=== PATIENT | female | born 2000 ===

== ENCOUNTER 2018-05-02 00:09 | Emergency (ER) | payer SELFPAY ==
[2018-05-02 00:10] VITALS: BMI 17.7
[2018-05-02 01:14] VITALS: RESP 18; O2SAT 100
[2018-05-02 02:02] LABS: PH,URINE 8.5 (4.7-8.0); URINE BILIRUBIN NEGATIVE (NEGATIVE); URINE BLOOD NEGATIVE (NEGATIVE); URINE GLUCOSE (UA) NEGATIVE (NEGATIVE); URINE LEUKOCYTE ESTERASE NEGATIVE Leu/uL (NEGATIVE); URINE PROTEIN 30 mg/dL (<30 mg/dL)
[2018-05-02 02:03] LABS: URINE APPEARANCE SL CLOUDY (CLEAR); URINE COLOR YELLOW (YELLOW)
--- NOTE | 2018-05-02 02:15 | ED PDOC ---
Arrival/HPI - General Historian: Patient - History of Present Illness Narrative History of Present Illness (Text): 05/02/18 02:13 17-year-old female presents today with depression. She denies suicidal or homicidal ideation. Patient states she was speaking to her friend and then t urned her phone off and her friend called the ambulance concerned about her. Patient denies headaches dizziness or weakness. She states she is frustrated with her mother and states that she can't do anything right to make her mother happy. <Angelica Stewart - Last Filed: 05/02/18 02:13> <Vahid Jeff - Last Filed: 05/02/18 05:03> - General Chief Complaint: Psychiatric Evaluation Time Seen by Provider: 05/02/18 00:43 Past Medical History - Provider Review Nursing Documentation Reviewed: Yes - Travel History Have you recently traveled outside [place] w/in the past 3 mons?: No - Past History Past History: No Previous - Infectious Disease Hx of Infectious Diseases: None - Psychiatric Hx Depression: No Hx Emotional Abuse: No Hx Physical Abuse: No Hx Substance Use: Yes - Past Surgical History Past Surgical History: No Previous - Anesthesia Hx Anesthesia: No - Suicidal Assessment Feels Threatened In Home Enviroment: No <Angelica Stewart - Last Filed: 05/02/18 02:13> Family/Social History - Physician Review Nursing Documentation Reviewed: Yes Family/Social History: Unknown Family HX Smoking Status: Current Some Days Smoker Hx Alcohol Use: No Hx Substance Use: Yes Substance used: marijuana Hx Substance Use Treatment: No <Angelica Stewart - Last Filed: 05/02/18 02:13> Allergies/Home Meds <Angelica Stewart - Last Filed: 05/02/18 02:13> <Vahid Jeff - Last Filed: 05/02/18 05:03> Allergies/Adverse Reactions: Allergies No Known Allergies Allergy (Verified 05/02/18 01:14) Home Medications: Home Meds Medication Instructions Recorded Confirmed No Known Home Med 05/02/18 05/02/18 Review of Systems - Review of Systems Constitutional: absent: Fatigue, Fevers Respiratory: absent: SOB, Cough Cardiovascular: absent: Chest Pain, Palpitations Gastrointestinal: absent: Abdominal Pain, Nausea, Vomiting Musculoskeletal: absent: Arthralgias Skin: absent: Rash, Pruritis Neurological: absent: Headache, Dizziness Psychiatric: Depression. absent: Anxiety, Suicidal Ideation <Angelica Stewart - Last Filed: 05/02/18 02:13> Physical Exam Vital Signs Reviewed: Yes Vital Signs Temp Pulse Resp BP Pulse Ox 05/02/18 00:29 98 F 90 18 128/79 100 Temperature: Afebrile Blood Pressure: Normal Pulse: Regular Respiratory Rate: Normal Appearance: Positive for: Well-Appearing, Non-Toxic, Comfortable Pain Distress: None Mental Status: Positive for: Alert and Oriented X 3 - Systems Exam Head: Present: Atraumatic Respiratory/Chest: Present: Clear to Auscultation Cardiovascular: Present: Regular Rate and Rhythm Abdomen: No: Tenderness, Rebound, Guarding Upper Extremity: Present: Normal ROM Lower Extremity: Present: Normal ROM Neurological: Present: GCS=15, Speech Normal Skin: Present: Warm, Dry, Normal Color. No: Rashes Psychiatric: Present: Alert, Oriented x 3 <Angelica Stewart - Last Filed: 05/02/18 02:13> Vital Signs Temp Pulse Resp BP Pulse Ox 05/02/18 00:29 98 F 90 18 128/79 100 <Vahid Jeff - Last Filed: 05/02/18 05:03> Medical Decision Making ED Course and Treatment: 05/02/18 02:14 Patient is nontoxic well-appearing in no distress vital signs are stable. CBC CMP Tylenol Salicylate Alcohol level Urine drug screen UA; wnl pt is medically cleared for PES evaluation Patient was seen and evaluated by PES screener: shell Case signed out to Dr. Jeff pending PES evaluation and disposition - Lab Interpretations Lab Results: Lab Results 05/02/18 01:40: Urine Color Yellow, Urine Appearance Sl cloudy, Urine pH 8.5, Ur Specific [place] 1.010, Urine Protein 30 H, Urine Glucose (UA) Negative, Urine Ketones 15 H, Urine Blood Negative, Urine Nitrate Negative, Urine Bilirubin Negative, Urine Urobilinogen 1.0 H, Ur Leukocyte Esterase Negative, Urine RBC Pending, Urine WBC Pending <Angelica Stewart - Last Filed: 05/02/18 02:13> ED Course and Treatment: 05/02/18 04:38 Pt seen and evaluated by PES screener Shell, who discussed case with psychiatrist application trainer. Pt psychiatrically stable for discharge with outpatient f/u with mental health. - Lab Interpretations Lab Results: 05/02/18 02:00 05/02/18 02:00 Lab Results 05/02/18 02:00: Alcohol, Quantitative < 10 05/02/18 02:00: Salicylates < 1 L, Acetaminophen < 10.0 L 05/02/18 02:00: Sodium 138, Potassium 4.7, Chloride 104, Carbon Dioxide 25, Anion Gap 13, BUN 13, Creatinine 0.7, Est GFR ( Amer) > 60, Est GFR (Non- Af Amer) > 60, Random Glucose 113 H, Calcium 9.3, Total Bilirubin 0.7, AST 23, ALT 16, Alkaline Phosphatase 69, Total Protein 7.5, Albumin 4.4, Globulin 3.1, Albumin/Globulin Ratio 1.4 05/02/18 02:00: WBC 6.3, RBC 4.28, Hgb 12.7, Hct 37.4, MCV 87.4, MCH 29.7, MCHC 34.0, RDW 11.8, Plt Count 193, MPV 10.9, Gran % 54.3, Lymph % (Auto) 39.8 H, Whiteside % (Auto) 4.3, Eos % (Auto) 1.4 L, Baso % (Auto) 0.2, Gran # 3.39, Lymph # (Auto) 2.5, Whites[place] # (Auto) 0.3, Eos # (Auto) 0.1, Baso # (Auto) 0.01 05/02/18 01:40: Urine Opiates Screen Negative, Urine Methadone Screen Negative, Ur Barbiturates Screen Negative, Ur Phencyclidine Scrn Negative, Ur Amphetamines Screen Negative, U Benzodiazepines Scrn Negative, U Oth Cocaine Metabols Negative, U Cannabinoids Screen Negative 05/02/18 01:40: Urine Color Yellow, Urine Appearance Sl cloudy, Urine pH 8.5, Ur Specific [place] 1.010, Urine Protein 30 H, Urine Glucose (UA) Negative, Urine Ketones 15 H, Urine Blood Negative, Urine Nitrate Negative, Urine Bilirubin Negative, Urine Urobilinogen 1.0 H, Ur Leukocyte Esterase Negative, Urine RBC 0 - 2, Urine WBC 0 - 2, Ur Epithelial Cells 1 - 3, Amorphous Sediment Few, Urine Bacteria Occ, Urine Other Mucus <Coccaro,Vahid - Last Filed: 10/11/18 05:03> - PA / CAR REPAIRMAN / Resident Statement MD/DO has reviewed & agrees with the documentation as recorded. <Vahid Jeff - Last Filed: 05/02/18 05:03> Disposition/Present on Arrival - Present on Arrival History of DVT/PE: No History of Uncontrolled Diabetes: No Urinary Catheter: No History of Decub. Ulcer: No History Surgical Site Infection Following: None <Angelica Stewart - Last Filed: 05/02/18 02:13> - Present on Arrival Any Indicators Present on Arrival: No - Disposition Have Diagnosis and Disposition been Completed?: Yes Disposition Time: 04:30 <Vahid Jeff - Last Filed: 05/02/18 05:03> - Disposition Diagnosis: Acute stress disorder Disposition: HOME/ ROUTINE Condition: GOOD Forms: [facility] (Telugu)
[2018-05-02 02:17] LABS: URINE AMORPHOUS SEDIMENT FEW; URINE BACTERIA OCC (NEG); URINE RBC 0 - 2 /hpf (0-2); URINE WBC 0 - 2 /hpf (0-6)
[2018-05-02 02:31] LABS: ACETAMINOPHEN < 10.0 ug/ml (10.0-20.0); BASO # 0.01 K/mm3 (0.0-2.0); BASO % 0.2 % (0.0-3.0); EOS # 0.1 (0.0-0.7); EOS % 1.4 % (1.5-5.0); GRAN # 3.39 (1.4-6.5); GRAN % 54.3 % (50.0-68.0); HEMOGLOBIN 12.7 g/dL (12.0-16.0); LYMPH # 2.5 (1.2-3.4); LYMPH % 39.8 % (22.0-35.0); MEAN CELL VOLUME 87.4 fl (80.0-105.0); MEAN CORPUSCULAR HEMOGLOBIN 29.7 pg (25.0-35.0); MEAN PLATELET VOLUME 10.9 fl (7.0-11.0); MONO # 0.3 (0.1-0.6); MONO % 4.3 % (1.0-6.0); RBC 4.28 10^6/uL (3.5-6.1); RED CELL DISTRIBUTION WIDTH 11.8 % (11.5-14.5); SALICYLATE < 1 mg/dL (2.0-20.0); WHITE BLOOD COUNT 6.3 10^3/ul (4.5-11.0)
[2018-05-02 02:32] LABS: ALB/GLOB RATIO 1.4 (1.1-1.8); ALBUMIN 4.4 g/dL (3.0-4.8); BLOOD UREA NITROGEN 13 mg/dL (7-21); CALCIUM 9.3 mg/dL (8.4-10.5); GFR NON-AFRICAN AMERICAN > 60
[2018-05-02 02:35] LABS: ALT/SGPT 16 U/L (7-56); AST/SGOT 23 U/L (14-36)
[2018-05-02 02:36] LABS: BARBITURATES, UR NEGATIVE (NEGATIVE); BENZODIAZEPINES, UR NEGATIVE (NEGATIVE); OPIATES, UR NEGATIVE (NEGATIVE); PHENCYCLIDINE, UR NEGATIVE (NEGATIVE)
[2018-05-02 04:56] VITALS: BP 115/57; PULSE 80; TEMP 97.8
--- NOTE | 2018-05-02 09:58 | CARD ---
APPROVED REPORT Date of service: 05/02/2018 EKG Measurement Heart [id number] <Conclusion> Normal sinus rhythm with sinus arrhythmia Normal ECG
== END 2018-05-02 05:10 | disposition home or self-care (01) ==
LOC: ED 00:09
DX: F43.0 Acute stress reaction (principal)
CPT/HCPCS: 80053; 81001; 85025; 90791; 93005; 99284; G0480